=== PATIENT | female | born 1950 | race Caucasian/White ===

== ENCOUNTER 2017-12-17 06:29 | Day surgery (SDC) | payer BC, MEDICARE ==
[2017-12-16 11:24] VITALS: BMI 34.0
[2017-12-17] MEDS ORDERED: ASPIRIN 325 MG TAB PO STA (06:31)
[2017-12-17] MEDS ORDERED: ALPRAZolam 0.5 MG TAB PO PRN (06:31)
[2017-12-17] MEDS ORDERED: NITROGLYCERIN SL TABS 0.4 MG TAB SUBLINGUAL PRN (06:31)
[2017-12-17] MEDS ORDERED: ALPRAZolam 0.25 MG TAB PO PRN (06:31)
[2017-12-17] MEDS ORDERED: SODIUM CHLORIDE 0.9% 1,000 ML in EMPTY BAG 1 BAG IV ONE (06:31)
[2017-12-17] MEDS ORDERED: ATORVASTATIN 80 MG TAB PO STA (06:31)
[2017-12-17 07:08] LABS: Basophils # (A) 0.1 k/uL (0-0.2); Basophils % (A) 1 %; Eosinophils # (A) 0.2 k/uL (0-0.7); Eosinophils % (A) 3 %; HCT 46.6 % (34.0-46.0); HGB 15.1 gm/dL (11.4-16.0); Lymphocytes # (A) 2.5 k/uL (1.0-4.8); Lymphocytes % (A) 33 %; MCH 30.1 pg (25.0-35.0); MCHC 32.5 g/dL (31.0-37.0); MCV 92.7 fL (80.0-100.0); Mean Platelet Volume 8.2; Monocytes # (A) 0.4 k/uL (0-1.0); Monocytes % (A) 5 %; Neutrophils # (A) 4.1 k/uL (1.3-7.7); Neutrophils % (A) 55 %; Platelet Count 257 k/uL (150-450); RBC 5.03 m/uL (3.80-5.40); RDW 12.3 % (11.5-15.5); WBC 7.5 k/uL (3.8-10.6)
[2017-12-17 07:12] VITALS: RESP 16; TEMP 97.6
[2017-12-17 07:18] LABS: Anion Gap 10 mmol/L; Blood Urea Nitrogen 20 mg/dL (7-17); Calcium 9.4 mg/dL (8.4-10.2); Carbon Dioxide 26 mmol/L (22-30); Chloride 104 mmol/L (98-107); Glucose 101 mg/dL (74-99); Sodium 140 mmol/L (137-145)
[2017-12-17 07:34] LABS: Potassium 4.2 mmol/L (3.5-5.1)
[2017-12-17] MEDS ORDERED: fentaNYL (PF) 50 MCG/ML 2 ML AMP IV ONE (07:38)
[2017-12-17] MEDS ORDERED: fentaNYL (PF) 50 MCG/ML 2 ML AMP ONE (07:38)
[2017-12-17] MEDS ORDERED: LIDOCAINE 2% SYG (PF) 100 MG/5 ML MISCELLANE ONE (07:42)
[2017-12-17] MEDS ORDERED: ONDANSETRON 4 MG/2 ML VIAL IVP ONE (07:56)
[2017-12-17] MEDS ORDERED: ONDANSETRON 4 MG/2 ML VIAL ONE (07:56)
[2017-12-17] MEDS ORDERED: IOPAMIDOL-370 125ML BTL INJ ONE (08:02)
[2017-12-17] MEDS ORDERED: RX INFO: IV CONTRAST WAS GIVEN 1 EACH MISC MISCELLANE PRN (08:09)
[2017-12-17] MEDS ORDERED: SODIUM CHLORIDE 0.9% 1,000 ML IV SCH (08:15)
--- NOTE | 2017-12-17 08:37 | CC ---
CARDIAC CATHETERIZATION REPORT INDICATION: Unstable angina. PROCEDURE NOTE: After obtaining informed consent, left heart catheterization, coronary angiogram are performed via the right femoral artery using standard Jacey catheters. Patient tolerated the procedure well without any obvious immediate complications. A femoral angiogram was performed and Angio-Seal was deployed for hemostasis. Patient received moderate conscious sedation. Total sedation time was 24 minutes. The patient had sinus bradycardia throughout the study. She is on both bisoprolol and verapamil. I am going to stop the verapamil at this time. FINDINGS: 1. HEMODYNAMICS: Left ventricular end-diastolic pressure is 18 to 20 mm. There is no significant gradient across the aortic valve. 2. LEFT VENTRICULOGRAM: Left ventriculogram is performed in REYES position and shows a normal-sized left ventricle with apical hypokinesis with moderate LV dysfunction with an ejection fraction of 40%. 3. ANGIOGRAPHIC DATA: 4. Left main coronary artery left main coronary artery is a normal-sized vessel and is free of stenosis. Divides into left anterior descending coronary artery and circumflex coronary artery. LAD is a small caliber vessel that has an atherosclerotic plaque in its proximal part, which could represent an area of plaque rupture. Circumflex coronary artery and its branches are free of significant stenosis. Right coronary artery is a large dominant vessel that has mild nonobstructive coronary artery disease. CONCLUSIONS: 1. Ischemic cardiomyopathy with evidence of apical myocardial infarction. 2. Mild nonobstructive coronary artery disease in both left anterior descending artery and right coronary artery. 3. Apical myocardial infarction could be due to plaque rupture and spontaneous recanalization. The patient will continue with optimal and aggressive medical therapy. I will stop the verapamil at this stage. If necessary, I will start her back on Norvasc. She has sinus bradycardia. I reviewed these issues at length with the patient. She understands and agreement with the plan. MMODL / IJN: [id number] /
--- NOTE | 2017-12-17 08:37 | LTR ---
December 17, [address] Wan: I performed cardiac catheterization on Rocio Salvador. A detailed catheterization noted in enclosed for your records. In brief, the cardiac catheterization revealed evidence of apical myocardial infarction with possible spontaneous recanalization of the LAD following an HI related to plaque rupture. Her management is going to be with optimal and aggressive medical therapy. Thank you for giving us the privilege to participate in the care of this pleasant lady. Sincerely, MD JACQUIE Honeycutt / PATO: [id number] /
[2017-12-17 14:18] VITALS: BP 104/55; PULSE 60
== END 2017-12-17 13:28 | disposition home or self-care (01) ==
LOC: CATHCVL 06:29
PROVIDERS: ATTEND Internal Medicine Cardiovascular Disease
DX: I25.5 Ischemic cardiomyopathy (principal); I25.110 Atherosclerotic heart disease of native coronary artery with unstable angina pectoris; I25.2 Old myocardial infarction; I10 Essential (primary) hypertension; E78.5 Hyperlipidemia, unspecified; Z72.0 Tobacco use; Z82.49 Family history of ischemic heart disease and other diseases of the circulatory system; Z79.02 Long term (current) use of antithrombotics/antiplatelets; Z79.82 Long term (current) use of aspirin; Z79.899 Other long term (current) drug therapy; Z79.51 Long term (current) use of inhaled steroids; Z79.890 Hormone replacement therapy; Z88.2 Allergy status to sulfonamides; Z91.09 Other allergy status, other than to drugs and biological substances
CPT/HCPCS: 93458; 80048; 85025; C1760; C1894; C1769; J2405; J2001; J3010; Q9967

== ENCOUNTER → 2018-04-01 | Outpatient (CLI) | payer MEDICARE ==
--- NOTE | 2018-04-03 08:44 | MM ---
Reason for exam: screening (asymptomatic). Last mammogram was performed 3 years and 4 months ago. History: Patient is postmenopausal. Family history of premenopausal breast cancer in mother at age 44, breast cancer in maternal aunt at age 78, and breast cancer in maternal aunt at age 83. Took hormonal contraceptives for 13 years. MG Screening Mammo w CAD Bilateral CC and MLO view(s) were taken. Prior study comparison: December 01, 2014, bilateral MG screening mammo w CAD. February 02, 2009, bilateral digital screening mammogram. The breast tissue is almost entirely fat. There is a equal irregular circumscribed mass in the right breast lower inner anterior position. approximately 5 cm from the nipple. Finding is changed when compared to prior studies. ASSESSMENT: Incomplete: need additional imaging evaluation, BI-RAD 0 RECOMMENDATION: Special view mammogram of the right breast.
== END | disposition home or self-care (01) ==
LOC: RADMAMWWP 11:43
PROVIDERS: ATTEND Family Medicine
DX: Z12.31 Encounter for screening mammogram for malignant neoplasm of breast (principal)
CPT/HCPCS: 77067

== ENCOUNTER → 2018-04-15 | Outpatient (CLI) | payer MEDICARE ==
--- NOTE | 2018-04-15 10:06 | MM ---
Reason for exam: additional evaluation requested from abnormal screening. Last mammogram was performed less than 1 month ago. History: Patient is postmenopausal. Family history of premenopausal breast cancer in mother at age 44, breast cancer in maternal aunt at age 78, and breast cancer in maternal aunt at age 83. Took hormonal contraceptives for 13 years. Physical Findings: Nurse did not find any significant physical abnormalities on exam. MG Work Up Mamm w CAD RT Spot compression CC, spot compression MLO, and LM view(s) were taken of the right breast. Prior study comparison: April 01, 2018, bilateral MG screening mammo w CAD. December 01, 2014, bilateral MG screening mammo w CAD. There are scattered fibroglandular densities. Nodularity persits upper inner quadrant anteriorly and while this is more pronounced from 2014, it appears to have been present back on 2008 and 2004. These results were verbally communicated with the patient and result sheet given to the patient on 04/15/18. ASSESSMENT: Probably benign, BI-RAD 3 RECOMMENDATION: Follow-up diagnostic mammogram of the right breast in 6 months.
== END | disposition home or self-care (01) ==
LOC: RADMAMWWP 08:42
PROVIDERS: ATTEND Family Medicine
DX: R92.8 Other abnormal and inconclusive findings on diagnostic imaging of breast (principal)
CPT/HCPCS: 77065

== ENCOUNTER → 2018-12-03 | Outpatient (CLI) | payer MEDICARE ==
--- NOTE | 2018-12-03 13:16 | MM ---
Reason for exam: additional evaluation requested from prior study. Last mammogram was performed 8 months ago. History: Patient is postmenopausal. Family history of premenopausal breast cancer in mother at age 44, breast cancer in maternal aunt at age 78, and breast cancer in maternal aunt at age 83. Took hormonal contraceptives for 13 years. Physical Findings: Nurse did not find any significant physical abnormalities on exam. MG Diagnostic Mammo RT w CAD CC and MLO view(s) were taken of the right breast. Prior study comparison: April 15, 2018, right breast MG work up mamm w CAD RT. April 01, 2018, bilateral MG screening mammo w CAD. There are scattered fibroglandular densities. Nodular density persists. Ultrasound recommended. These results were verbally communicated with the patient and result sheet given to the patient on 12/03/18. ASSESSMENT: Incomplete: need additional imaging evaluation, BI-RAD 0 RECOMMENDATION: Ultrasound of the right breast.
--- NOTE | 2018-12-03 13:18 | USB ---
Reason for exam: additional evaluation requested from prior study. History: Patient is postmenopausal. Family history of premenopausal breast cancer in mother at age 44, breast cancer in maternal aunt at age 78, and breast cancer in maternal aunt at age 83. Took hormonal contraceptives for 13 years. US Breast Limited RT Right limited breast ultrasound including focal area of concern, retroareolar and axilla demonstrates a 2 x 2 x 2mm oval, cystic lesion at 2 o'clock. These results were verbally communicated with the patient and result sheet given to the patient on 12/03/18. ASSESSMENT: Benign, BI-RAD 2 RECOMMENDATION: Return to routine screening mammogram schedule for both breasts.
== END | disposition home or self-care (01) ==
LOC: RADMAMWWP 10:52
PROVIDERS: ATTEND Family Medicine
DX: R92.8 Other abnormal and inconclusive findings on diagnostic imaging of breast (principal)
CPT/HCPCS: 77065

== ENCOUNTER → 2020-11-30 | Outpatient (CLI) | payer MEDICARE ==
--- NOTE | 2020-11-30 15:30 | XR ---
Lumbar spine HISTORY: Low back pain 3 views of the lumbar spine Lumbar vertebral bodies show preserved height. Bone mineralization is reduced. There is a slight spin al curvature convex left centered at L2. Sclerosis in the posterior talus and lower lumbar spine is c onsistent with facet arthropathy. There is loss of disc height and intervertebral levels especially L 2-3, L1-2 and L5-S1. There is some overlying artifact present. Atherosclerotic vascular calcification s are noted incidentally. IMPRESSION: Osteopenia, degenerative disc disease, facet arthropathy and spinal curvature.
--- NOTE | 2020-11-30 15:37 | XR ---
Right hip HISTORY: Pain 2 views of the right hip Bone mineralization is reduced. There is axial joint space loss present medially. Alignment is mainta ined. No fracture or dislocation. There is some remodeling of the humeral head. IMPRESSION: Some mild osteoarthritis changes are suspected. Osteopenia.
== END | disposition home or self-care (01) ==
LOC: RADXRMAIN 13:29
PROVIDERS: ATTEND Physician Assistant Medical
DX: M51.36 Other intervertebral disc degeneration, lumbar region (principal); M47.816 Spondylosis without myelopathy or radiculopathy, lumbar region; M16.11 Unilateral primary osteoarthritis, right hip
CPT/HCPCS: 72100; 73502

== ENCOUNTER → 2021-06-01 | Outpatient (CLI) | payer MEDICARE ==
[2021-06-01 15:27] LABS: ALT 17 U/L (8-44); AST 20 U/L (13-35); Chol/HDL Ratio 3.33 Ratio; LDL Cholesterol,Calculated 86.8 mg/dL (0.0-131.0)
== END | disposition home or self-care (01) ==
LOC: LABWHC1 08:12
PROVIDERS: ATTEND Nurse Practitioner Family
DX: E78.2 Mixed hyperlipidemia (principal)
CPT/HCPCS: 36415; 80061; 84450; 84460

== ENCOUNTER → 2022-02-06 | Outpatient (CLI) | payer MEDICARE ==
--- NOTE | 2022-02-07 09:15 | MM ---
Reason for Exam: Screening (asymptomatic). Last mammogram was performed 3 year(s) and 11 month(s) ago. Patient History: Menarche at age 12. First Full-Term at age 21. Postmenopausal. Patient used Hormonal Contraceptives for 13 years. Maternal aunt had breast cancer, age 78. Maternal aunt had breast cancer, age 83. Mother had breast cancer, age 44. Risk Values: Shante 5 year model risk: 3.6%. NCI Lifetime model risk: 10.4%. Prior Study Comparison: 04/01/2018 Bilateral Screening Mammogram, [facility]. 04/15/2018 Right Diagnostic Mammogram, [facility]. 12/03/2018 Right Diagnostic Mammogram, [facility]. Tissue Density: The breast tissue is almost entirely fat. Findings: Analyzed By CAD. There is no suspicious group of microcalcifications or new suspicious mass in either breast. Overall Assessment: Negative, BI-RAD 1 Management: Screening Mammogram of both breasts in 1 year. A clinical breast exam by your physician is recommended on an annual basis and results should be correlated with mammographic findings. [facility] will attempt to contact patient to return for supplemental views and ultrasound if indicated. Electronically signed and approved by: Ector Saldana DO
== END ==
LOC: RADMAMWWP 10:04
PROVIDERS: ATTEND Family Medicine
DX: Z12.31 Encounter for screening mammogram for malignant neoplasm of breast (principal); Z80.3 Family history of malignant neoplasm of breast; Z78.0 Asymptomatic menopausal state
CPT/HCPCS: 77067

== ENCOUNTER 2022-06-05 09:49 | Day surgery (SDC) | payer MEDICARE ==
[2022-06-01 09:03] VITALS: BMI 31.2
[~2022-06-05 09:49] MED LIST: LACTATED RINGERS 1,000 ML IV SCH; LIDOCAINE 1% (10MG/ML) FOR IV START INTRADERMA PRN
[2022-06-05 10:44] VITALS: RESP 16; TEMP 97.1
[2022-06-05 10:44] LABS: Glucose,Whole Blood 132 mg/dL (70-110)
[2022-06-05] MEDS ORDERED: LIDOCAINE 2% INJ 20 MG/ML (2 ML VIAL) ONE (11:00)
[2022-06-05] MEDS ORDERED: PROPOFOL 10 MG/ML 20 ML VIAL IV ONE (11:00)
--- NOTE | 2022-06-05 11:01 | P.GSHP ---
History of Present Illness H&P Date: 06/05/22 Chief Complaint: Abnormal stool test 71-year-old female here for colonoscopy. Last colonoscopy 9 years ago. Recent stool test was abnormal. Denies rectal bleeding or melena. Some chronic constipation. Past Medical History Past Medical History: Asthma, COPD, Hyperlipidemia, Hypertension, Myocardial Infarction ([place]), Osteoarthritis (OA), Thyroid Disorder Additional Past Medical History / Comment(s): see Dr. Tinajero's notes for cardiac hx Last Myocardial Infarction Date:: 2019 History of Any Multi-Drug Resistant Organisms: None Reported Past Surgical History: Section, Heart Catheterization, Joint Replacement, Orthopedic Surgery, Tubal Ligation Additional Past Surgical History / Comment(s): RT KNEE REPLACE., TOTAL THYROIDECTOMY, bilat thumb joint replaced, Past Anesthesia/Blood Transfusion Reactions: No Reported Reaction Smoking Status: Former smoker - Past Family History Mother Family Medical History: Cancer, Pulmonary Embolus Additional Family Medical History / Comment(s): BREAST Medications and Allergies Home Medications Medication Instructions Recorded Confirmed Type Bisoprolol/Hydrochlorothiazide 1 each PO DAILY 07/13/13 06/05/22 History [Ziac 10-6.25 MG] Levothyroxine Sodium [Synthroid] 175 mcg PO DAILY 07/13/13 06/01/22 History Montelukast [Singulair] 10 mg PO HS 07/13/13 06/01/22 History Aspirin 81 mg PO DAILY 12/16/17 06/01/22 History Atorvastatin Calcium [Lipitor] 80 mg PO HS 12/16/17 06/01/22 History Fluticasone Propion/Salmeterol 1 inhalation PO BID 12/16/17 06/01/22 History [Advair 500-50 Diskus] Nathrop-3 Fatty Acids/Fish Oil [Fish 2 each PO DAILY 12/16/17 06/01/22 History Oil 1,000 mg Softgel] traMADol-ACETAMINOP 37.5-325MG 1 tab PO BID PRN 12/16/17 06/01/22 History [Ultracet] Isosorbide Mononitrate ER [Imdur] 30 mg PO DAILY 12/17/17 06/01/22 History Losartan [Cozaar] 100 mg PO DAILY 06/01/22 06/01/22 History Allergies Allergy/AdvReac Type Severity Reaction Status Date / Time Sulfa (Sulfonamide AdvReac THRUSH Verified 06/05/22 10:26 Antibiotics) Surgical - Exam Vital Signs Temp Pulse Resp BP Pulse Ox 97.1 F L 70 16 179/72 96 06/05/22 10:30 06/05/22 10:30 06/05/22 10:30 06/05/22 10:30 06/05/22 10:30 Physical exam: General: Well-developed, well-nourished HEENT: Normocephalic, sclerae nonicteric Abdomen: Nontender, nondistended Extremities: No edema Neuro: Alert and oriented Results - Labs Abnormal Lab Results - Last 24 Hours (Table) 06/05/22 Range/Units 10:37 POC Glucose (mg/dL) 132 H (70-110) mg/dL Assessment and Plan (1) Abnormal stool test Narrative/Plan: Will proceed with colonoscopy at this time. Current Visit: Yes Status: Acute Code(s): R19.5 - OTHER FECAL ABNORMALITIES SNOMED Code(s): 257388003
--- NOTE | 2022-06-05 11:27 | P.PCN ---
Date of Procedure: 06/05/22 Procedure(s) Performed: PREOPERATIVE DIAGNOSIS: Abnormal stool test POSTOPERATIVE DIAGNOSIS: Mild left-sided colitis, extensive diverticulosis with tortuosity PROCEDURE: Colonoscopy with biopsy [place] [facility] [place]: Leonardo Olvera M.D. SPECIMENS: Mild colitis ENDOSCOPIC PROCEDURE: The patient was placed on the endoscopy table in the left decubitus position. The Olympus colonoscope was inserted into the anus and passed under direct visualization to the base of the cecum. The appendiceal orifice was visualized. From that point the scope was slowly withdrawn inspecting all surfaces carefully. There were no neoplastic lesions throughout the cecum, ascending, transverse, descending, sigmoid and rectum. In the descending colon there was a pedunculated lipoma measuring about 1.5 cm. This was not biopsied as it may have represented a inverted diverticulum. Starting in the descending colon there was mild erythema and induration of the mucosa scattered from the descending colon all the way down to the rectum. Biopsies of the left sided colitis were taken. There was a small amount of blood present within the colon that was primarily on the left side of the colon thought to be related to the colitis. The patient had extensive diverticulosis throughout the colon with associated tortuosity. Digital rectal examination was normal. The patient was taken to the recovery room in stable condition per anesthesia guidelines. RECOMMENDATIONS: Await biopsy results. Recent abnormal stool tests likely on the basis of mild colitis.
[2022-06-05 11:46] VITALS: BP 164/71; PULSE 64
== END 2022-06-05 12:03 | disposition home or self-care (01) ==
LOC: ORWHC2ENDO 09:49
PROVIDERS: ATTEND Surgery
DX: K51.50 Left sided colitis without complications (principal); K57.30 Diverticulosis of large intestine without perforation or abscess without bleeding; J44.9 Chronic obstructive pulmonary disease, unspecified; E78.5 Hyperlipidemia, unspecified; I10 Essential (primary) hypertension; I25.2 Old myocardial infarction; M19.90 Unspecified osteoarthritis, unspecified site; Z98.891 History of uterine scar from previous surgery; Z95.5 Presence of coronary angioplasty implant and graft; Z98.51 Tubal ligation status; Z98.890 Other specified postprocedural states; Z87.891 Personal history of nicotine dependence; Z79.82 Long term (current) use of aspirin; Z79.899 Other long term (current) drug therapy; Z79.51 Long term (current) use of inhaled steroids; Z88.2 Allergy status to sulfonamides
CPT/HCPCS: 88305; 45380; J2704; J2001

== ENCOUNTER → 2023-11-18 | Outpatient (CLI) | payer MEDICARE ==
[2023-11-18 15:24] LABS: ALT 19 U/L (8-44); AST 21 U/L (13-35); Chol/HDL Ratio 2.91 Ratio; LDL Cholesterol,Calculated 68.6 mg/dL (0.0-131.0); VLDL Calculation 19.38 mg/dL (5.00-40.00)
== END | disposition home or self-care (01) ==
LOC: LABWHC1 09:11
PROVIDERS: ATTEND Internal Medicine Cardiovascular Disease
DX: E78.2 Mixed hyperlipidemia (principal)
CPT/HCPCS: 36415; 80061; 84450; 84460

== ENCOUNTER → 2024-01-08 | Outpatient (CLI) | payer MEDICARE ==
--- NOTE | 2024-01-08 15:47 | MM ---
Reason for Exam: Screening (asymptomatic). Last mammogram was performed 1 year(s) and 11 month(s) ago. Patient History: Menarche at age 12. First Full-Term at age 21. Postmenopausal. Patient has history of breast feeding. Patient used Hormonal Contraceptives for 13 years. Maternal aunt had breast cancer, age 78. Maternal aunt had breast cancer, age 83. Mother had breast cancer, age 44. Risk Values: Shante 5 year model risk: 3.7%. NCI Lifetime model risk: 9.4%. Prior Study Comparison: 12/01/2014 Bilateral Screening Mammogram, [facility]. 04/01/2018 Bilateral Screening Mammogram, [facility]. 04/15/2018 Right Diagnostic Mammogram, [facility]. 12/03/2018 Right Diagnostic Mammogram, [facility]. 02/06/2022 Bilateral MG screening mammo w CAD, [facility]. Tissue Density: The breasts are almost entirely fatty. Findings: Analyzed By CAD. The pattern is symmetrical. Benign spherical calcifications within the anterior left breast. Couple small rounded calcifications are within the right breast. No significant interval changes are evident. No suspicious groups of microcalcifications, spiculated or lobular masses, architectural distortion or other secondary signs of malignancy are mammographically apparent. Overall Assessment: Benign, BI-RAD 2 Management: Screening Mammogram of both breasts in 1 year. A negative mammogram report should not preclude additional follow up of suspicious palpable abnormalities. Patient should continue monthly self breast exam. A clinical breast exam by your physician is recommended on an annual basis and results should be correlated with mammographic findings. Note on Shante scores and lifetime risk: 1. A Shante score greater than 3% is considered moderate risk. If this is the case, consider specialist referral to assess eligibility for a risk reducing agent. 2. If overall lifetime risk for the development of breast cancer is 20% or higher, the patient may qualify for future screening with alternating mammogram and breast MRI. [facility], , 01/08/2024 3:43 PM. Electronically signed and approved by: Garrick Camilo D.O. Radiologis
== END | disposition home or self-care (01) ==
LOC: RADMAMWWP 09:17
PROVIDERS: ATTEND Family Medicine
DX: Z12.31 Encounter for screening mammogram for malignant neoplasm of breast (principal); Z78.0 Asymptomatic menopausal state; Z80.3 Family history of malignant neoplasm of breast
CPT/HCPCS: 77067